=== PATIENT | male | born 1965 | race Caucasian/White ===

== ENCOUNTER → 2018-02-16 | Outpatient (CLI) | payer OTHER ==
--- NOTE | 2018-02-19 11:02 | TST ---
[place] [address] T[employer] STRESS TEST Name: NAREN CHOUDHURY Room: [facility]#: [id number] Admission: 02/16/18 Attend Phys: Deborah Villavicencio Discharge: Date of : 67 Date of Service: 02/16/18 1448 Report #: [id number] THIS REPORT FOR: //name// CC: Deborah Thorpe DATE OF SERVICE: 02/16/2018 INDICATIONS: Exercise stress test was requested in this patient with a history of hypertension. PROCEDURE: The patient was exercised on a Irwin protocol from a pretest heart rate of 96, blood pressure 116/64. RESULTS: The patient was able to exercise for 7 minutes and 36 seconds using a Irwin protocol to a peak heart rate of 167, which was greater than 90% of maximum predicted heart rate for the patient's age. Peak blood pressure was 205/66. In recovery, the patient had a heart rate of 104, blood pressure 122/73. The patient denied chest discomfort with exercise, was terminated because of fatigue and elevated blood pressure. The patient's resting ECG showed normal sinus rhythm with no ST or T-wave change. With exercise, no arrhythmias were noted. There were no ischemic ST segment changes noted with exercise. IMPRESSION: 1. Adequate exercise tolerance. 2. Hypertensive blood pressure response to exercise. 3. No ischemic ST-segment changes. 4. No chest pain with exercise. 5. Low risk exercise stress test for future cardiac events. <ELECTRONICALLY SIGNED> By: Naren Morse MD, FACC 02/19/18 1102 1448 [id number] Naren Morse MD, FACC /nt
== END ==
LOC: M.CRD 12:56
DX: I10 Essential (primary) hypertension (principal)